=== PATIENT | male | born 1995 | race Caucasian/White ===

== ENCOUNTER 2017-07-31 07:33 | Emergency (ER) | payer BC ==
[~2017-07-31] VITALS: Ht 180.3 cm; Wt 75.4 kg
[2017-07-31 07:39] VITALS: TEMP 36.5; Ht 180.3 cm; Wt 75.4 kg
[2017-07-31] MEDS ORDERED: ALBUT/IPRATROP 3MG/0.5MG NEB 3 ML VIAL INH STA ×2 (08:01→09:18)
[2017-07-31] MEDS ORDERED: CLR10 PO (08:34)
[2017-07-31] MEDS ORDERED: MONT1TAB3 PO (08:34)
--- NOTE | 2017-07-31 08:52 | DIAGNOSTIC IMAGING REPORT ---
TWO VIEW CHEST CLINICAL HISTORY: Cough. FINDINGS: PA and lateral chest radiographs are obtained. No prior studies are available for comparison at the time of dictation. The cardiomediastinal silhouette is unremarkable. The lungs and pleural spaces are clear. There is no pneumothorax. The bony thorax appears intact. IMPRESSION: No active disease in the chest. Electronically signed by: Napoleon Morejon M.D. 07/31/2017 8:51 AM Dictated Date/Time: 07/31/2017 8:50 AM
[2017-07-31 08:57] LABS: INFLUENZA B ANTIGEN Neg for Influ B (NEG)
[2017-07-31] MEDS ORDERED: METHYLPREDNISOLONE IV 60 MG in SYRINGE 0 ML IV STA (09:18)
[2017-07-31] MEDS ORDERED: AZITHROMYCIN 250 MG TAB PO STA (09:25)
[2017-07-31] MEDS ORDERED: AZIT250T PO (09:28)
[2017-07-31] MEDS ORDERED: PRED20TA2 PO (09:28)
--- NOTE | 2017-07-31 09:29 | EMERGENCY ROOM VISIT NOTE ---
History First contact with patient: 07:40 Chief Complaint: FLU LIKE SX Stated Complaint: ASTHMA, HAVING TROUBLE BREATHING History of Present Illness The patient is a 22 year old male who presents to the Emergency Room via private vehicle with complaints of, asthma, having trouble breathing". The patient states that this past or Monday he developed with upper respiratory tract symptoms consistent with that of the common cold. He states that he has a history of asthma, and since this past or Monday it appears to have been worsening, mostly at night. The patient states that he normally has a nebulizer, but this is at home in [place] do not here at the [place]. He states that he does have a little bit of minimal chest pain from coughing, and little bit of sputum production. There is no chest pain at rest. There is also nasal congestion. He denies any fevers, chills, night sweats, nausea, vomiting, diarrhea, constipation, abdominal pain, body aches, sore throat, ear pain. Review of Systems A complete 10-point Review of Systems was discussed with the patient, with pertinent positives and negatives listed in the History of Present Illness. All remaining Review of Systems questions can be considered negative unless otherwise specified. Past Medical/Surgical History Asthma Family History No pertinent Social History Smoking Status: Never Smoker Pt.lives locally and is a [employer] Current/Historical Medications Scheduled Azithromycin (Zithromax), 250 MG PO DAILY Loratadine (Claritin), 10 MG PO QAM Montelukast Sodium (Singulair), 10 MG PO QAM Prednisone (Prednisone Tab), 0 PO DAILY Physical Exam Vital Signs Date Time Temp Pulse Resp B/P (MAP) Pulse Ox O2 Delivery O2 Flow Rate FiO2 07/31/17 09:52 87 16 119/71 96 07/31/17 07:39 36.5 80 18 115/75 96 Room Air Physical Exam VITAL SIGNS - Vital signs and nursing notes were reviewed. Stable. Hips GENERAL -22-year-old male appearing his stated age who is in no acute distress. Communicates well with provider and answers questions appropriately. SKIN - Without rashes. No petechial or meningeal rash. HEAD - NC/AT. EYES - Sclera anicteric. Palpebral conjunctiva pink and moist with no injection noted. EARS - No deformities of external structures noted on gross examination bilaterally. NOSE - Midline and without cyanosis. No epistaxis or purulent drainage noted. MOUTH/OROPHARYNX - Without perioral cyanosis. LUNGS - Chest wall symmetric without accessory muscle use, intercostals retractions, or central cyanosis. Normal vesicular breath sounds CTA B/L. No wheezes, rales, or rhonchi appreciated. CARDIAC - RRR with S1/S2. No murmur, rubs, or gallops appreciated. Medical Decision & Procedures ER Provider Diagnostic Interpretation: [~ rep ct add3]] TWO VIEW CHEST CLINICAL HISTORY: Cough. FINDINGS: PA and lateral chest radiographs are obtained. No prior studies are available for comparison at the time of dictation. The cardiomediastinal silhouette is unremarkable. The lungs and pleural spaces are clear. There is no pneumothorax. The bony thorax appears intact. IMPRESSION: No active disease in the chest. Electronically signed by: Napoleon Morejon M.D. 07/31/2017 8:51 AM Dictated Date/Time: 07/31/2017 8:50 AM Laboratory Results Test 07/31/17 08:20 Influenza Type A Antigen Neg for Influ A (NEG) Influenza Type B Antigen Neg for Influ B (NEG) Medications Administered Medications (Trade) Dose Ordered Sig/Becca Route Start Time Stop Time Status Last Admin Dose Admin Albuterol/ Ipratropium (Duoneb) 3 ml NOW STAT INH 07/31/17 08:01 07/31/17 08:02 DC 07/31/17 08:06 3 ML Azithromycin (Zithromax Tab) 500 mg NOW STAT PO 07/31/17 09:25 07/31/17 09:26 DC 07/31/17 09:25 500 MG Medical Decision Patient was seen and evaluated as above. He presents to us today with a URI like cough, and congestion and history of asthma. He notes that every time he gets sick it exacerbates his asthma however unfortunately his nebulizers at home in [place]. He uses albuterol inhaler today without relief. He presents and is well on exam. He is nontoxic. Vital signs are stable. No evidence of KS or PE on examination. Chest x-ray was obtained and found negative. He was given a 15 minute DuoNeb and was reevaluated and feeling some better. I informed him that we can give him steroids and longer nebulizer treatment however he is concerned about missing class. He notes that he is feeling well enough to go back and uses albuterol inhaler, and retrieve his nebulizer. He' ll return with worsening and follow with [facility] services. He prefers discharge. I believe this is reasonable. He was educated upon management, educated upon worrisome symptoms which to return, had questions answered prior to discharge, and was discharged home in good condition with the diagnosis of asthmatic bronchitis. Because of his underlying history of asthma I will add an antibiotic given his risk. This will be azithromycin. He will also be started on a steroid. In the evaluation and treatment of this patient the following differential diagnoses were entertained: KS, PE, asthma exacerbation, bronchitis, pneumonia, among others. Impression Primary Impression: Asthmatic bronchitis Departure Information Dispostion Home / Self-Care Condition GOOD Prescriptions Azithromycin (Zithromax) 250 Mg Tab 250 MG PO DAILY, #4 TAB Prov: Theodore Valles PA-C 07/31/17 Prednisone (Prednisone Tab) 20 Mg Tab 0 PO DAILY, #7 TAB 2 TABS DAILY FOR 2 DAYS, THEN 1 TAB DAILY FOR 2 DAYS, THEN 1/2 TAB DAILY FOR 2 DAYS. Prov: Theodore Valles PA-C 07/31/17 Referrals No Doctor, Assigned (PCP) Patient Instructions My [facility] Additional Instructions You were seen in the emergency department for your asthma exacerbation. At this time I recommend continuing albuterol inhaler. I do recommend retrieving your nebulizer. Your chest x-ray does not show any pneumonia. I suspect that your cold symptoms have contributed to a worsening of your asthma. Temporarily. I recommend the azithromycin 500 mg today, followed by 250 mg each day. You may begin this next dose tomorrow around 10 AM. I do recommend prednisone as directed as well. Please call [facility] to schedule follow-up. Please return with any new/concerning symptoms.
[2017-07-31 09:52] VITALS: BP 119/71; PULSE 87; O2SAT 96
== END 2017-07-31 09:54 | disposition home or self-care (01) ==
LOC: C.EDB 07:36
DX: J45.998 Other asthma (principal)